=== PATIENT | male | born 1985 | race Two or more races ===

== ENCOUNTER 2018-11-29 15:25 | Emergency (ER) | payer MEDICAID ==
[~2018-11-29] VITALS: Ht 167.6 cm; Wt 56.2 kg
[2018-11-29] MEDS ORDERED: LORAZEPAM 1 MG TABLET ONE (15:41)
[2018-11-29] MEDS ORDERED: LORAZEPAM 1 MG TABLET PO ONE (16:00)
--- NOTE | 2018-11-29 16:00 | NUR ---
PATIENT CAME TO ED BIB EMS AND [employer] FROM HOME C/C AGITATION ,SI ,HOLDING KNIFE PER REPORT
[2018-11-29 16:12] LABS: BASOPHILS # (AUTO) 0.1 /CMM (0.0-0.2); BASOPHILS % (AUTO) 0.6 % (0.0-2.0); EOSINOPHILS % (AUTO) 0.4 % (0.0-6.0); HEMATOCRIT 47 % (39-51); HEMOGLOBIN 15.7 g/dL (13.5-17.5); LYMPHOCYTES % (AUTO) 8.1 % (20.0-44.0); MEAN CORPUSCULAR HGB CONC 33 g/dl (31.0-36.0); MEAN CORPUSCULAR VOLUME 90 fL (80-96); MONOCYTES # (AUTO) 1.2 /CMM (0.1-1.30); MONOCYTES % (AUTO) 10.1 % (2.0-12.0); NEUTROPHILS # (AUTO) 9.8 /CMM (1.8-8.9); NEUTROPHILS % (AUTO) 80.8 % (43.0-81.0); PLATELET COUNT (AUTO) 489 /CMM (150-450); RED BLOOD CELL COUNT(AUTO) 5.25 MIL/uL (4.5-6.0); WHITE BLOOD COUNT (AUTO) 12.2 K/uL (4.3-11.0)
[2018-11-29 16:19] LABS: CALCIUM, SERUM 10.3 mg/dL (8.5-10.1); CARBON DIOXIDE 25 mmol/L (21-32); CHLORIDE 95 mmol/L (98-107); CREATININE 1.9 mg/dL (0.6-1.3); GLUCOSE 134 mg/dL (74-106); POTASSIUM 3.5 mmol/L (3.5-5.1); SODIUM SERUM 133 mmol/L (136-145); UREA NITROGEN, BLOOD 24 mg/dL (7-18)
--- NOTE | 2018-11-29 16:22 | NUR ---
PATIENT AWAKE ALERT HE DENIES SI ,HE FOLLOWS COMMAND NOTED TACHY IN THE MONITOR ,LAB DRAWS DONE ,EKG PENDING URINE
[2018-11-29 16:29] LABS: ACETAMINOPHEN 0 ug/ml (10-30); ALANINE AMINOTRANSFERASE 23 U/L (12-78); ALBUMIN 4.8 g/dL (3.4-5.0); ALCOHOL, BLOOD < 3 mg/dL (0-0); ALKALINE PHOSPHATASE 84 U/L (46-116); ASPARTATE AMINOTRANSFERASE 16 U/L (15-37); BILIRUBIN,DIRECT 0.3 mg/dL (0.0-0.2); BILIRUBIN,TOTAL 1.2 mg/dL (0.2-1.0); SALICYLATE < 0.2 mg/dL (2.8-20.0); TOTAL PROTEIN, SERUM 8.6 g/dL (6.4-8.2)
--- NOTE | 2018-11-29 16:51 | NUR ---
PATIENT AWAKE ALERT DENIES PAIN ,DENIES SI ,PATIENT ABLE TO AMBULTED TO BATHROOM URINE OBTAINED AND SEND TO LAB ,REMAIN SHIFT SUPERINTENDENT @ BEDSIDE
[2018-11-29 17:05] LABS: APPEARANCE,URINE Slightly Cloudy (CLEAR); BILIRUBIN,URINE Negative (NEGATIVE); BLOOD, URINE Trace-intact Ery/uL (NEGATIVE); COLOR,URINE Yellow (YELLOW); KETONES,URINE Trace (NEGATIVE); LEUKOCYTE ESTERASE ,URINE Negative (NEGATIVE); NITRITE, URINE Negative (NEGATIVE); PROTEIN,URINE 100 mg/dl (NEGATIVE); UGLUCOSE Negative (NEGATIVE); UROBILINOGEN,URINE 0.2 EU/dL (0.2)
[2018-11-29 17:11] LABS: BACTERIA,URINE Few /HPF (None Seen); HYALINE CASTS, URINE Few /LPF (None Seen); MUCUS,URINE Few /LPF (None Seen); SPERM,URINE Few /HPF (None Seen); SQUAMOUS EPITHELIAL CELL,UR Few /HPF (None Seen); WBC,URINE 0-2 /HPF (0-3)
--- NOTE | 2018-11-29 17:30 | NUR ---
PATIENT ASLEEP BUT AROUSABLE NO EYE CONTACT FALL BACK TO SLEEP CONTINUE TO MONITOR
--- NOTE | 2018-11-29 19:24 | NUR ---
ASSESSED PT ON BED, ASLEEP EASILY AROUSABLE, V/S STABLE, NOT IN RESPIRATORY DISTRESS, WILL CONTINUE TO MONITOR.
[2018-11-30 04:59] VITALS: BP 112/72
--- NOTE | 2018-11-30 05:13 | NUR ---
Patient discharged to home in stable condition. Written and verbal after care instructions given. Patient verbalizes understanding of instruction.
== END 2018-11-30 05:14 | disposition home or self-care (01) ==
LOC: ER 15:28
DX: F23 Brief psychotic disorder (principal); F15.10 Other stimulant abuse, uncomplicated; N18.9 Chronic kidney disease, unspecified; R94.5 Abnormal results of liver function studies; F17.200 Nicotine dependence, unspecified, uncomplicated; R00.0 Tachycardia, unspecified
CPT/HCPCS: 36415; 80048; 80076; 80305; 80307; 80329; 81001; 82550; 85025; 93005; 99284; G0480; 81000-TC